=== PATIENT | male | born 2000 | race Caucasian/White ===

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

== ENCOUNTER 2024-10-10 22:14 | Emergency (ER) | payer OTHER, SELFPAY ==
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
[2024-10-10 22:29] VITALS: BP 145/75; PULSE 110; O2SAT 100
[2024-10-10 22:40] VITALS: BP 138/84; PULSE 107; RESP 18; TEMP 36.6; O2SAT 98; BMI 30.3
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
--- OUTSIDE RECORDS SUMMARY | 2024-10-10 23:29 | XMS_ITS | Encounter Summary ---
Author Organization [facility] Address [address] [place] [id number] Phone Care Team Providers Care Outside Sales Representative Name Role Phone Kenneth Barksdale MD Primary Care Provider Unavailabl e Encounter Details Date Type Department Care Team (Late st Contact Info) Description 01/23/2017 Conversion Encounter [facility] - [address] [phone] Social History Tobacco Use Types Packs/Day Years Used Date Smoking Tobacco: Never Assessed Sex and Gender Information Value Date Recorded Sex Assigned at Not on file Legal Sex Male 4:11 PM EDT Gender Identity Not on file Sexual Orientation Not on file documented as of this encounter Plan of Treatment Not on file documented as of this encounter Visit Diagnoses Not on filedocumented in this encounter Care Teams Outside Sales Representative Relationship Specialty Start Date End Date Kenneth Barksdale MD PCP - General 01/17/17 07/17/22 documented as of this encounter
--- OUTSIDE RECORDS SUMMARY | 2024-10-10 23:29 | XMS_ITS | Clinical Summary ---
Author Organization [facility] Address [address] [place] [id number] Phone Care Team Providers Care Vp Project Name Role Phone Unavailable Primary Care Provider Unavailabl e Immunizations Immunization Administration Dates Next Due DTaP 5 05/29/2004,05/27/2003,03/17/2003 ,01/03/2003 Hep B, ped/adol 05/27/2003,2002,2002 Hib (HbOC) 01/31/2004,05/27/2003,03/17/2003 Hib (PRP-T) 01/03/2003 IPV 08/04/2003,03/17/2003,01/03/2003 MMR 11/03/2003 Pneumococcal Conjugate 05/29/2004,05/27/2003,02/2003,01/03/2003 Varicella 11/03/2003 Family History Relation Name Status Comments Brother Alive Brother: Alive and well Father Alive Father: Alive a nd well Maternal Grandmother Alive Materna l grandmother: Alive and well Mother Alive Mother: Alive a nd well Social History Tobacco Use Types Packs/Day Years Used Date Smoking Tobacco: Never Assessed Sex and Gender Information Value Date Recorded Sex Assigned at Not on file Legal Sex Male 4:11 PM EDT Gender Identity Not on file Sexual Orientation Not on file Plan of Treatment Health Maintenance Due Date Last Done Comments IPV Vaccines (4 of 4 - 4-dose series) 2006 08/04/2003, 03/17/2003, 01/03/2003 Varicella Vaccines (2 of 2 - 2-dose childhood series) 2006 11/03/2003 DTaP,Tdap,and Td Vaccines (5 - Tdap) 2013 05/29/2004, 05/27/2003, 03/17/2003, Additional history exists HPV Vaccines (1 - Male 3-dose series) 2017 Men B Vaccine (1 of 2 - Standard) 2018 Influenza Vaccines (#1) 2024 COVID-19 Vaccine ( - ) 02/08/2024 Hepatitis B Vaccines Completed 05/27/2003, 2002, 2002 MMR Vaccines Completed 11/03/2003 HIB Vaccines Completed 01/31/2004, 05/09, 03/17/2003, Additional history exists Pneumococcal Vaccine Completed 05/29/2004, 05/27/2003, 03/17/2003, Additional history exists Hepatitis A Vaccines Aged Out No long er eligible based on patient's age to complete this topic Meningococcal Vaccine Aged Out No riley kendrick eligible based on patient's age to complete this topic
--- NOTE | 2024-10-11 | PC.NURSE ---
tranexamic acid given to MD alaniz as requested
[2024-10-11 00:15] VITALS: BP 133/63; PULSE 74; RESP 16; TEMP 36.9; O2SAT 97
[2024-10-11] MEDS: Tranexamic Acid 1,000 MG/10 ML VIAL 500 MG INTRANASAL (00:25)
[2024-10-11] MEDS: Lidocaine HCl 1 % MPF 5 ML VIAL 10 ML SUBCUT (01:34)
[2024-10-11 01:55] VITALS: BP 142/73; PULSE 95; RESP 16; TEMP 36.9
[2024-10-11] MEDS: Amoxicillin/Potassium Clav 875 MG TABLET PO (02:02)
[2024-10-11 02:06] VITALS: BP 142/73; PULSE 95; RESP 16; TEMP 36.9
== END 2024-10-11 02:06 | disposition home or self-care (01) ==
PROVIDERS: Emergency Provider Emergency Medicine; PCP Internal Medicine
DX: S02.2XXA Fracture of nasal bones, initial encounter for closed fracture (principal); S01.21XA Laceration without foreign body of nose, initial encounter; R51.9 Headache, unspecified; V47.5XXA Car driver injured in collision with fixed or stationary object in traffic accident, initial encounter; Y93.9 Activity, unspecified; Y92.410 Unspecified street and highway as the place of occurrence of the external cause; Y99.8 Other external cause status
CPT/HCPCS: 12013; 70450; 70486; 99284; J2003

== ENCOUNTER → 2024-10-10 23:19 | Outpatient (BNV) | payer OTHER, SELFPAY | PROVIDERS: Emergency Provider Emergency Medicine; PCP Internal Medicine; Visit Provider General Practice | DX: S02.2XXA Fracture of nasal bones, initial encounter for closed fracture (principal); V89.2XXA Person injured in unspecified motor-vehicle accident, traffic, initial encounter | CPT/HCPCS: 70450; 70486 ==

== ENCOUNTER 2024-10-11 13:02 | Emergency (ER) | payer OTHER, SELFPAY ==
[2024-10-11 13:19] VITALS: BP 130/75; PULSE 90; RESP 18; TEMP 36.6; O2SAT 98; BMI 24.2
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
[2024-10-11 13:59] VITALS: BP 130/75; PULSE 90; RESP 18; TEMP 36.6; O2SAT 98
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
--- OUTSIDE RECORDS SUMMARY | 2024-10-11 15:15 | XMS_ITS | Encounter Summary ---
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
--- OUTSIDE RECORDS SUMMARY | 2024-10-11 15:15 | XMS_ITS | Clinical Summary ---
Author Organization [facility] Address [address] [place] [phone] Phone Care Team Providers Care Solar Energy System Installer Helper Name Role Phone Unavailable Primary Care Provider [...]
== END 2024-10-11 14:00 | disposition home or self-care (01) ==
PROVIDERS: Emergency Provider Emergency Medicine; PCP Internal Medicine
DX: R04.0 Epistaxis (principal); S02.2XXA Fracture of nasal bones, initial encounter for closed fracture; V89.2XXA Person injured in unspecified motor-vehicle accident, traffic, initial encounter; Y93.9 Activity, unspecified; Y92.9 Unspecified place or not applicable; Y99.9 Unspecified external cause status
CPT/HCPCS: 99282